=== PATIENT | female | born 2000 | race Caucasian/White ===

== ENCOUNTER 2020-07-03 15:49 | Emergency (ER) | payer BC, OTHER ==
--- NOTE | 2020-07-03 17:13 | ER Document Report ---
ED Medical Screen (RME) - General Chief Complaint: Abdominal Pain Stated Complaint: ABDOMINAL/PELVIC PAIN Notes: Patient is a 19-year-old female with a recent past medical history of 2 months ago with subsequent minor complications since that time who has recently moved to the area and complains of pain in the right lower pelvic region for the past 3 days. She states that her boyfriend was recently tested for herpes, treated but he tells her that it was a false positive despite being treated. She states that he has some crusting wounds near the genitals that she is unsure if they are herpes or not based on his explanation to her. She states that she had some abnormal discharge a few days prior to this but has since turned into a thinner discharge. She denies any bleeding or urinary trouble. Denies any abdominal pain but admits to some pelvic pain. No nausea vomiting or diarrhea. No fevers. I have treated and performed a rapid initial assessment of this patient. A comprehensive ED assessment and evaluation of the patient, analysis of test results and completion of medical decision making process will be conducted by additional ED providers. PHYSICAL EXAMINATION: GENERAL: Well-appearing, well-nourished and in no acute distress. A&Ox4. Answers questions appropriately. - Related Data Allergies/Adverse Reactions: No Known Allergies Allergy (Unverified 07/03/20 16:57) Past Medical History - Social History Chew tobacco use (# tins/day): No Frequency of alcohol use: Social Drug Abuse: None Physical Exam - Vital signs Vitals: Temp Pulse Resp BP Pulse Ox 98.7 F 83 20 114/88 H 99 07/03/20 16:12 07/03/20 16:12 07/03/20 16:12 07/03/20 16:12 07/03/20 16:12 Course - Vital Signs Vital signs: Temp Pulse Resp BP Pulse Ox 98.7 F 83 20 114/88 H 99 07/03/20 16:12 07/03/20 16:12 07/03/20 16:12 07/03/20 16:12 07/03/20 16:12
[2020-07-03 18:14] LABS: ABSOLUTE EOSINOPHILS # (AUTO) 0.1 10^3/uL (0.0-0.6); ABSOLUTE LYMPHOCYTES (AUTO) 1.6 10^3/uL (0.5-4.7); ABSOLUTE MONOCYTES (AUTO) 0.5 10^3/uL (0.1-1.4); ABSOLUTE NEUT (AUTO) 3.3 10^3/uL (1.7-8.2); BASOPHILS % (AUTO) 0.4 % (0-2); HEMATOCRIT 37.8 % (36.0-47.0); HEMOGLOBIN 12.9 g/dL (12.0-15.5); LYMPHOCYTES % (AUTO) 28.7 % (13-45); MEAN CORPUSCULAR HEMOGLOBIN 30.1 pg (27.0-33.4); MEAN CORPUSCULAR HGB CONC 34.1 g/dL (32.0-36.0); MEAN CORPUSCULAR VOLUME 88 fl (80-97); MONOCYTES % (AUTO) 9.5 % (3-13); PLATELET COUNT 283 10^3/uL (150-450); RED BLOOD COUNT 4.27 10^6/uL (3.72-5.28); RED CELL DISTRIBUTION WIDTH 12.5 % (11.5-14.0); SEGMENTED NEUTROPHILS % (AUTO) 60.4 % (42-78); TOTAL CELLS COUNTED % (AUTO) 100 %; WHITE BLOOD COUNT 5.4 10^3/uL (4.0-10.5)
[2020-07-03 18:15] LABS: APPEARANCE,URINE CLEAR; BILIRUBIN,URINE NEGATIVE (NEGATIVE); COLOR,URINE YELLOW; GLUCOSE, URINE NEGATIVE (NEGATIVE); KETONES,URINE NEGATIVE (NEGATIVE); PROTEIN,URINE NEGATIVE (NEGATIVE); URINE SPECIFIC GRAVITY 1.021; UROBILINOGEN,URINE NEGATIVE mg/dL (<2.0)
[2020-07-03 18:33] LABS: ALBUMIN 4.5 g/dL (3.5-5.0); ALKALINE PHOSPHATASE 48 U/L (38-126); ANION GAP 5 (5-19); ASPARTATE AMINO TRANSFERASE 25 U/L (14-36); BILIRUBIN,TOTAL 0.5 mg/dL (0.2-1.3); BLOOD UREA NITROGEN 11 mg/dL (7-20); CALCIUM 9.6 mg/dL (8.4-10.2); CARBON DIOXIDE 28 mmol/L (22-30); CHLORIDE 103 mmol/L (98-107); GLUCOSE 88 mg/dL (75-110); POTASSIUM 4.1 mmol/L (3.6-5.0); TOTAL PROTEIN 7.5 g/dL (6.3-8.2)
--- NOTE | 2020-07-03 18:46 | ER Document Report ---
ED GI/ - General Chief Complaint: Abdominal Pain Stated Complaint: ABDOMINAL/PELVIC PAIN Time Seen by Provider: 07/03/20 18:24 Primary Care Provider: HANNAH MOYER MD [ACTIVE PROVISIONAL STAFF] - Follow up as needed Mode of Arrival: Ambulatory Information source: Patient Notes: 19-year-old female presents to the emergency room complaining of some intermittent right lower quadrant pain for the past 3 days. Patient, vomiting, no fevers, no urinary symptoms. States she has been taking in her milligrams of Motrin with some relief. Patient states she is concerned about the pain thought maybe she might be having appendicitis also had a medical 2 months ago has not had any Complications since the . Complains of dysuria and vaginal discharge. No change in sexual partners. TRAVEL OUTSIDE OF THE [place] IN LAST 30 DAYS: No - Related Data Allergies/Adverse Reactions: No Known Allergies Allergy (Unverified 07/03/20 16:57) Past Medical History - General Information source: Patient - Social History Smoking Status: Never Smoker Chew tobacco use (# tins/day): No Frequency of alcohol use: Social Drug Abuse: None Family History: Reviewed & Not Pertinent Patient has homicidal ideation: No Review of Systems - Review of Systems Constitutional: No symptoms reported Cardiovascular: No symptoms reported Respiratory: No symptoms reported Gastrointestinal: Abdominal pain Genitourinary: Dysuria Musculoskeletal: No symptoms reported Skin: No symptoms reported Neurological/Psychological: No symptoms reported -: Yes All other systems reviewed and negative Physical Exam - Vital signs Vitals: Temp Pulse Resp BP Pulse Ox 98.7 F 83 20 114/88 H 99 07/03/20 16:12 07/03/20 16:12 07/03/20 16:12 07/03/20 16:12 07/03/20 16:12 - General General appearance: Appears well, Alert In distress: Mild - Respiratory Respiratory status: No respiratory distress Chest status: Nontender Breath sounds: Normal Chest palpation: Normal - Cardiovascular Rhythm: Regular Heart sounds: Normal auscultation Murmur: No - Abdominal Inspection: Normal Distension: No distension Bowel sounds: Normal Tenderness: Nontender Organomegaly: No organomegaly - Genitourinary External exam: Normal Speculum exam: Vaginal discharge - Mild amount of thin white discharge noted Vaginal bleeding: None Bimanuel exam: Normal. No: Adnexal tenderness, Uterus enlarged - Back Back: Normal, Nontender. No: CVA tenderness - Extremities General upper extremity: Normal inspection, Nontender, Normal color, Normal ROM, Normal temperature General lower extremity: Normal inspection, Nontender, Normal color, Normal ROM, Normal temperature, Normal weight bearing. No: Ki's sign Course - Re-evaluation Re-evalutation: 07/03/20 19:58 Patient is resting comfortably she is pain-free on exam.. All test results were reviewed with the patient. She was counseled to take Tylenol and or Motrin as needed for pain. Outpatient follow-up with RN INFORMATICS as discussed. She was provided with the on-call physician. Patient was given strict return to the emergency room guidelines. Return for any new or worsening symptoms. All questions were answered. Patient verbalized understanding and agrees with plan of care. 07/03/20 20:11 - Vital Signs Vital signs: Temp Pulse Resp BP Pulse Ox 98.2 F 74 16 118/76 99 07/03/20 18:59 07/03/20 18:59 07/03/20 18:59 07/03/20 18:59 07/03/20 18:59 - Laboratory Result Diagrams: 07/03/20 17:51 07/03/20 17:51 Laboratory results interpreted by me: 07/03/20 17:51 Sodium 136.2 L - Diagnostic Test Radiology reviewed: Reports reviewed Discharge - Discharge Clinical Impression: Right ovarian cyst, Follicular cyst of left ovary, Pelvic pain Condition: Stable Disposition: HOME, SELF-CARE Instructions: Ovarian Cyst ([facility]), Pelvic Pain ([facility]) Additional Instructions: Tylenol and/or Motrin as needed for pain. Outpatient follow-up with gynecology as discussed. Return to the emergency room for any new or worsening symptoms. Prescriptions: Ibuprofen [Motrin 600 Mg Tablet] 800 mg PO TID #30 tablet Referrals: HANNAH MOYER MD [ACTIVE PROVISIONAL STAFF] - Follow up as needed
[2020-07-03 19:31] LABS: EPITHELIALS (WET MOUNT) 3+ EPITHELIALS SEEN; RBCS (WET MOUNT) RARE RBCS SEEN; T.VAGINALIS (WET MOUNT) NO TRICHOMONAS SEEN; WBCS (WET MOUNT) RARE WBCS SEEN; YEAST (WET MOUNT) NO YEAST SEEN
--- NOTE | 2020-07-03 19:32 | RADIOLOGY REPORT (SQ) ---
EXAM DESCRIPTION: U/S NON OB PEL TV W/DOPPLER IMAGES COMPLETED DATE/TIME: 07/03/2020 7:05 pm REASON FOR STUDY: pelvic pain COMPARISON: None. TECHNIQUE: Grayscale images acquired of the pelvis via transvaginal approach and recorded on PACS. A dditional selected color Doppler and spectral images recorded. LIMITATIONS: None. FINDINGS: UTERUS: The uterus measures 8.0 x 3.2 x 4.7 cm. No focal myometrial mass was seen. ENDOMETRIAL STRIPE: The endometrium measures 6.3 mm in double wall thickness, within normal limits. CERVIX: The cervix measures 3.2 cm in length. Small amount of fluid is noted at the endocervical can al. RIGHT OVARY AND DOPPLER: The right ovary measures 4.4 x 2.7 x 4.0 cm. Flow by Doppler was shown to t he right ovary. There is a 2.9 x 2.1 x 2.7 cm anechoic cyst. LEFT OVARY AND DOPPLER: The left ovary measures 1.0 x 3.4 x 2.0 cm. Flow by Doppler was shown to the left ovary. There is a 1.5 x 1.2 x 0.9 cm dominant follicle. FREE FLUID: No significant free fluid is noted. IMPRESSION: 1. 2.9 cm simple cyst at the right ovary. 2. Small amount of fluid at the endocervical canal. TECHNICAL DOCUMENTATION: JOB ID: [id number] [employer]- All Rights Reserved Rev Reading location - IP/workstation name: [email or web address]
[2020-07-03 19:43] LABS: CHLAM PCR NOT DETECTED (NOT DETECT)
[2020-07-03 20:35] VITALS: BP 118/72
== END 2020-07-03 20:29 | disposition home or self-care (01) ==
LOC: ER 15:49
DX: N83.291 Other ovarian cyst, right side (principal); N83.02 Follicular cyst of left ovary; R30.0 Dysuria; N89.8 Other specified noninflammatory disorders of vagina; R10.31 Right lower quadrant pain; R10.2 Pelvic and perineal pain
CPT/HCPCS: 36415; 76830; 80053; 81001; 83690; 84703; 85025; 87210; 87491; 87591; 93976; 99284